=== PATIENT | female | born 1955 | race Caucasian/White ===

== ENCOUNTER 2022-09-24 13:55 | Emergency (ER) | payer OTHER ==
[~2022-09-24] VITALS: Ht 167.6 cm; Wt 110.0 kg
[2022-09-24 19:23] VITALS: BP 140/82
[2022-09-24 19:53] LABS: CLARITY,URINE SLIGHTLY CLOUDY (Clear); COLOR,URINE YELLOW (Yellow); GLUCOSE, URINE NEGATIVE (Neg); KETONES,URINE NEGATIVE (Neg); LEUKOCYTE ESTERASE ,URINE NEGATIVE (Neg); NITRITES, URINE NEGATIVE (Neg); OCCULT BLOOD,URINE NEGATIVE (Neg); PROTEIN,URINE NEGATIVE (Neg); UROBILINOGEN,URINE 0.2 E.U/dL (0.2-1.0)
[2022-09-24 20:02] LABS: UA COLLECTION TYPE CLN CATCH MIDSTREAM
[2022-09-24 20:04] LABS: BACTERIA,URINE NONE SEEN /HPF (Neg); MUCUS STRANDS FEW /LPF (Neg); RBC,URINE NONE SEEN /HPF (0-2); SQUAMOUS EPITHELIAL CELL,UR MODERATE /LPF (FEW); WBC,URINE 0-4 /HPF (0-4)
== END 2022-09-24 21:53 | disposition left against medical advice (07) ==
LOC: ER 13:58
DX: R32 Unspecified urinary incontinence (principal); M54.59 Other low back pain
CPT/HCPCS: 72148; 81001; 99284